=== PATIENT | male | born 1960 | race Caucasian/White ===

== ENCOUNTER 2022-02-07 09:20 | Day surgery (SDC) | payer BC ==
[2022-02-03 12:10] VITALS: BMI 29.2
[~2022-02-07 09:20] MED LIST: LACTATED RINGERS 1,000 ML IV SCH
[2022-02-07 10:13] VITALS: RESP 16; TEMP 98.2
[2022-02-07] MEDS ORDERED: PROPOFOL 10 MG/ML 20 ML VIAL IV ONE (10:49)
--- NOTE | 2022-02-07 11:09 | P.PCN ---
Date of Procedure: 02/07/22 Procedure(s) Performed: BRIEF HISTORY: Patient is a 61-year-old pleasant white male scheduled for an elective colonoscopy as a part of screening for colon rectal neoplasia. PROCEDURE PERFORMED: Colonoscopy with snare polypectomy. PREOPERATIVE DIAGNOSIS: Screening for colon cancer. IV sedation per Anesthesia. PROCEDURE: After informed consent was obtained, the patient, was brought into the endoscopy unit. IV sedation was administered by Anesthesia under continuous monitoring. Digital rectal examination was normal. Initially the Olympus CF-160 flexible video colonoscope was then inserted in the rectum, gradually advanced into the cecum without any difficulty. Careful examination was performed as the scope was gradually being withdrawn. Ileocecal valve and the appendiceal orifice were visualized and appeared normal. Prep was excellent. Mucosa of the cecum, had a 7 mm sessile polyp removed by snare polypectomy. Rest of the ascending colon, transverse colon, descending colon, sigmoid colon, and rectum appeared normal. Retroflexion was performed in the rectum and no lesions were seen. The patient tolerated the procedure well. IMPRESSION: 7 mm cecal polyp status post polypectomy rest of the colon appeared normal RECOMMENDATIONS: Findings of this examination were discussed with the patient as well as his family. He was advised to follow with the biopsy results. If the biopsy shows adenoma he can have a repeat colonoscopy in 5 years.
[2022-02-07 11:30] VITALS: BP 135/95; PULSE 83
== END 2022-02-07 11:40 | disposition home or self-care (01) ==
LOC: ORWHC2ENDO 09:20
PROVIDERS: ATTEND Internal Medicine Gastroenterology
DX: Z12.11 Encounter for screening for malignant neoplasm of colon (principal); D12.0 Benign neoplasm of cecum; E78.5 Hyperlipidemia, unspecified; R19.7 Diarrhea, unspecified; Z79.899 Other long term (current) drug therapy; Z88.0 Allergy status to penicillin; Z97.2 Presence of dental prosthetic device (complete) (partial)
CPT/HCPCS: 88305; 45385; J2704

== ENCOUNTER 2024-12-17 13:14 | Emergency (ER) | payer MEDICARE, BC ==
--- NOTE | 2024-12-17 14:09 | ED ---
Upper Extremity HPI - General Chief Complaint: Extremity Injury, Upper Stated Complaint: L hand injury Time Seen by Provider: 12/17/24 14:05 Source: patient, RN notes reviewed Mode of arrival: ambulatory Limitations: no limitations - History of Present Illness Initial Comments: 64-year-old male presenting for left hand injury 2 days ago. States he was working outside when a chain came down and hit him on the left hand. States he is having large amount of swelling in his thumb and limited range of motion of the thumb. Pain radiates into the wrist. No other injuries. No cuts or lacerations. - Related Data Home Medications Medication Instructions Recorded Confirmed Lipitor - Unknown Dose 1 tab PO DAILY 02/06/22 02/07/22 Vitamin B-12 Unknown Dose 1 dose PO DAILY 02/06/22 02/07/22 Folic Acid 1 mg PO DAILY 02/07/22 02/07/22 Allergies Allergy/AdvReac Type Severity Reaction Status Date / Time Penicillins Allergy Unknown THROAT Verified 12/17/24 13:19 SWELLING Review of Systems ROS Statement: Those systems with pertinent positive or pertinent negative responses have been documented in the HPI. ROS Other: All systems not noted in ROS Statement are negative. Past Medical History Past Medical History: Hyperlipidemia Additional Past Medical History / Comment(s): Diarrhea History of Any Multi-Drug Resistant Organisms: None Reported Past Surgical History: Orthopedic Surgery Additional Past Surgical History / Comment(s): R Rotator cuff surgery. Past Anesthesia/Blood Transfusion Reactions: No Reported Reaction Past Psychological History: No Psychological Hx Reported Smoking Status: Former smoker Past Alcohol Use History: Heavy Past Drug Use History: None Reported - Past Family History Mother Family Medical History: No Reported History General Exam Limitations: no limitations General appearance: alert, in no apparent distress Head exam: Present: atraumatic, normocephalic, normal inspection Eye exam: Present: normal appearance, PERRL, EOMI. Absent: scleral icterus, conjunctival injection, periorbital swelling Left Elbow exam: Present: normal inspection, full ROM. Absent: tenderness, swelling Forearm Wrist exam: Present: normal inspection, full ROM. Absent: tenderness, swelling, tenderness over anatomical snuff box Hand Wrist exam: Present: tenderness, swelling, erythema. Absent: normal inspection, full ROM (Limited range of motion of DIP joint of the left thumb with diffuse swelling), abrasion, laceration, deformity Vascular: Present: normal capillary refill, radial pulse. Absent: vascular compromise Neurological exam: Present: alert, oriented X3 Psychiatric exam: Present: normal affect, normal mood Skin exam: Present: warm, dry, intact, normal color. Absent: rash Course Vital Signs 12/17/24 13:16 Temperature 97.9 F Pulse Rate 112 H Respiratory 18 Rate Blood Pressure 164/70 O2 Sat by Pulse 98 Oximetry Procedures - Orthopedic Splinting/Casting Injury #1 Side: left Upper Extremity Injury Location: hand Upper Extremity Immobilizer: thumb spica Additional Comments: Neurovascularly intact status post splint Medical Decision Making - Medical Decision Making Was pt. sent in by a medical professional or institution (, PA, [employer], urgent care, hospital, or custodial...) When possible be specific @ -No Did you speak to anyone other than the patient for history (EMS, parent, family, police, friend...)? What history was obtained from this source @ -No Did you review nursing and triage notes (agree or disagree)? Why? @ -I reviewed and agree with nursing and triage notes Were old charts reviewed (outside hosp., previous admission, EMS record, old EKG, old radiological studies, urgent care reports/EKG's, custodial records)? Report findings @ -No old charts were reviewed Differential Diagnosis (chest pain, altered mental status, abdominal pain women, abdominal pain men, vaginal bleeding, weakness, fever, dyspnea, syncope, headache, dizziness, GI bleed, back pain, seizure, CVA, palpatations, mental health, musculoskeletal)? @ -Differential Musculoskeletal Muscular strain, contusion, ligament sprain, fracture, arthritis, septic arthritis, bursitis, cellulitis, muscle spasm, nerve compression, DVT, arterial occlusion, herpes zoster, electrolyte abnormality, tumor.... This is not meant to be in all inclusive list EKG interpreted by me (3pts min.). @ -None X-rays interpreted by me (1pt min.). @ -X-ray left hand reveals comminuted fracture through first digit proximal phalanx with intra-articular extension to interphalangeal joint and metacarpoph alangeal joint CT interpreted by me (1pt min.). @ -None done U/S interpreted by me (1pt. min.). @ -None done What testing was considered but not performed or refused? (CT, X-rays, U/S, labs)? Why? @ -None What meds were considered but not given or refused? Why? @ -None Did you discuss the management of the patient with other professionals (professionals i.e. , PA, [employer], lab, RT, psych nurse, social worker masters, features editor, teacher, environmental officer, adult protective caseworker)? Give summary @ -No Was smoking cessation discussed for >3mins.? @ -No Was critical care preformed (if so, how long)? @ -No Were there social determinants of health that impacted care today? How? (Homelessness, low income, unemployed, alcoholism, drug addiction, transportation, low edu. Level, literacy, decrease access to med. care, long term, r ehab)? @ -No Was there de-escalation of care discussed even if they declined (Discuss DNR or withdrawal of care, Hospice)? DNR status @ -No What co-morbidities impacted this encounter? (DM, HTN, Smoking, COPD, CAD, Cancer, CVA, ARF, Chemo, Hep., AIDS, mental health diagnosis, sleep apnea, morbid obesity)? @ -None Was patient admitted / discharged? Hospital course, mention meds given and route, prescriptions, significant lab abnormalities, going to OR and other pertinent info. @ -Discharge. 64-year-old male with left hand injury 2 days ago. There is diffuse first digit swelling with limited range of motion. Neurovascular intact. X-ray reveals comminuted fracture through first digit proximal phalanx with intra-articular extension into interphalangeal joint and metacarpophalangeal joints. Discussed results with patient. Thumb spica splint placed and advised to follow-up with orthopedics in 1 to 2 days. Appropriate return precautions and supportive care discussed. Case was discussed with the ED attending Dr. Wiggins. Undiagnosed new problem with uncertain prognosis? @ -No Drug Therapy requiring intensive monitoring for toxicity (Heparin, Nitro, Insulin, Cardizem)? @ -No Were any procedures done? @ -Orthopedic splint performed Diagnosis/symptom? @ -Left thumb fracture Acute, or Chronic, or Acute on Chronic? @ -Acute Uncomplicated (without systemic symptoms) or Complicated (systemic symptoms)? @ -Uncomplicated Side effects of treatment? @ -No Exacerbation, Progression, or Severe Exacerbation? @ -No Poses a threat to life or bodily function? How? (Chest pain, [place], [place], pneumonia, PE, COPD, DKA, ARF, appy, cholecystitis, CVA, Diverticulitis, Homicidal, Suicidal, threat to staff... and all critical care pts) @ -No Disposition Clinical Impression: Fracture of thumb, left, closed Disposition: HOME SELF-CARE Condition: Stable Instructions (If sedation given, give patient instructions): Thumb Fracture (ED) Additional Instructions: [facility] as discussed. Dr. York is the hand specialist for the group. Keep splint dry. Wear until orthopedic follow-up. Please return to the Emergency Department if symptoms worsen or any other concerns. Is patient prescribed a controlled substance at d/c from ED?: No Referrals: None,Stated [Primary Care Provider] - 1-2 days Reinaldo Sheridan DO [Doctor of Osteopathic Medicine] - 1-2 days Time of Disposition: 15:26
--- NOTE | 2024-12-17 14:35 | XR ---
EXAMINATION TYPE: XR hand complete LT DATE OF EXAM: 12/17/2024 2:19 PM COMPARISON: Noner CLINICAL INDICATION: Male, 64 years old with history of left hand injury; PHH, pain TECHNIQUE: XR hand complete LT 4 views were obtained. FINDINGS: Comminuted fracture with extension into the articular surfaces of the carpal metacarpophala ngeal joint and the interphalangeal joint of the first digit. Degeneration changes with joint space t earing mass effect relation of the second and third digit metacarpal phalangeal joints. IMPRESSION: 1. Comminuted fracture through the first digit proximal phalanx with intra-articular extension to th e interphalangeal joint and metacarpophalangeal joint. 2. Multifocal osteoarthrosis throughout the joints of the hand worse at the second and third digits and metacarpal phalangeal joint. [facility], , 12/17/2024 2:32 PM
[2024-12-17 15:42] VITALS: BP 157/78; PULSE 78; RESP 20; TEMP 98.1
== END 2024-12-17 15:51 | disposition home or self-care (01) ==
LOC: EC 13:14
DX: S62.512A Displaced fracture of proximal phalanx of left thumb, initial encounter for closed fracture (principal); Z87.891 Personal history of nicotine dependence; W22.09XA Striking against other stationary object, initial encounter
CPT/HCPCS: 29125; 99283

== ENCOUNTER 2024-12-26 20:50 | Emergency (ER) | payer BC, MEDICARE ==
[2024-12-26 20:57] VITALS: BP 114/64; PULSE 90; RESP 18; TEMP 97.9
--- NOTE | 2024-12-26 21:39 | ED ---
General Adult HPI - General Chief complaint: Wound/Laceration Stated complaint: posb broken nose Time Seen by Provider: 12/26/24 20:59 Source: patient Mode of arrival: ambulatory Limitations: no limitations - History of Present Illness Initial comments: 64-year-old male presenting with chief complaint of facial laceration. Patient has had a "a few beers" tonight. He states that he tripped and fell hitting his face on the ground. He has a laceration over the bridge of his nose, about 2- 1/2 cm long. His tetanus is up-to-date. He denies any loss of consciousness or blood thinners. No nausea or vomiting. No headache dizziness or vision changes. No confusion. No numbness or tingling. He is able to walk without difficulty. No extremity pain. No chest pain or difficulty breathing. - Related Data Home Medications Medication Instructions Recorded Confirmed Lipitor - Unknown Dose 1 tab PO DAILY 02/06/22 02/07/22 Vitamin B-12 Unknown Dose 1 dose PO DAILY 02/06/22 02/07/22 Folic Acid 1 mg PO DAILY 02/07/22 02/07/22 Previous Rx's Medication Instructions Recorded Cephalexin [Keflex] 500 mg PO Q6HR 7 Days #28 cap 12/26/24 Allergies Allergy/AdvReac Type Severity Reaction Status Date / Time Penicillins Allergy Unknown THROAT Verified 12/26/24 20:57 SWELLING Review of Systems ROS Statement: Those systems with pertinent positive or pertinent negative responses have been documented in the HPI. ROS Other: All systems not noted in ROS Statement are negative. Past Medical History Past Medical History: Hyperlipidemia Additional Past Medical History / Comment(s): Diarrhea History of Any Multi-Drug Resistant Organisms: None Reported Past Surgical History: Orthopedic Surgery Additional Past Surgical History / Comment(s): R Rotator cuff surgery. Past Anesthesia/Blood Transfusion Reactions: No Reported Reaction Past Psychological History: No Psychological Hx Reported Smoking Status: Former smoker Past Alcohol Use History: Heavy Past Drug Use History: None Reported - Past Family History Mother Family Medical History: No Reported History General Exam Limitations: no limitations General appearance: alert, in no apparent distress Expanded Head exam: Present: laceration (Laceration to the bridge of the nose) Eye exam: Present: normal appearance, EOMI Neck exam: Present: normal inspection. Absent: meningismus Respiratory exam: Absent: respiratory distress Cardiovascular Exam: Present: regular rate Neurological exam: Present: alert, oriented X3 Psychiatric exam: Present: normal affect, normal mood Course Vital Signs 12/26/24 20:54 Temperature 97.9 F Pulse Rate 90 Respiratory 18 Rate Blood Pressure 114/64 O2 Sat by Pulse 96 Oximetry Procedures - Laceration Laceration #1 Consent Obtained: verbal consent Indication: laceration Site: face Size (cm): 2 Description: linear Depth: simple, single layer Anesthetic Used: lidocaine 1%, without epi Anesthesia Technique: local infiltration Pre-repair: wound explored, irrigated extensively Size of Sutures: 5-0 Number of Sutures: 3 Technique: simple, interrupted Patient Tolerated Procedure: well Medical Decision Making - Medical Decision Making Was pt. sent in by a medical professional or institution (, PA, ROAD CUTTER, urgent care, hospital, or detention...) When possible be specific @ -No Did you speak to anyone other than the patient for history (EMS, parent, family, police, friend...)? What history was obtained from this source @ -No Did you review nursing and triage notes (agree or disagree)? Why? @ -I reviewed and agree with nursing and triage notes Were old charts reviewed (outside hosp., previous admission, EMS record, old EKG, old radiological studies, urgent care reports/EKG's, detention records)? Report findings @ -No old charts were reviewed Differential Diagnosis (chest pain, altered mental status, abdominal pain women, abdominal pain men, vaginal bleeding, weakness, fever, dyspnea, syncope, headache, dizziness, GI bleed, back pain, seizure, CVA, palpatations, mental health, musculoskeletal)? @ -Differential includes uncomplicated head injury, laceration, fracture, hemorrhage, concussion, not an all-inclusive list EKG interpreted by me (3pts min.). @ -As above X-rays interpreted by me (1pt min.). @ -I will CT interpreted by me (1pt min.). @ -CT shows no acute intracranial process. No evidence of cervical spine fracture. Moderate to severe multilevel degenerative disc disease. Nasal bone fracture to the tip with slight indented deformity U/S interpreted by me (1pt. min.). @ -None done What testing was considered but not performed or refused? (CT, X-rays, U/S, labs)? Why? @ -None What meds were considered but not given or refused? Why? @ -None Did you discuss the management of the patient with other professionals (professionals i.e. , PA, ROAD CUTTER, lab, RT, psych nurse, social sciences chair, clinical physician assistant, teacher, surface to air weapons officer, watch case polisher)? Give summary @ -No Was smoking cessation discussed for >3mins.? @ -No Was critical care preformed (if so, how long)? @ -No Were there social determinants of health that impacted care today? How? (Homelessness, low income, unemployed, alcoholism, drug addiction, transportation, low edu. Level, literacy, decrease access to med. care, nursing home, rehab)? @ -No Was there de-escalation of care discussed even if they declined (Discuss DNR or withdrawal of care, Hospice)? DNR status @ -No What co-morbidities impacted this encounter? (DM, HTN, Smoking, COPD, CAD, Cancer, CVA, ARF, Chemo, Hep., AIDS, mental health diagnosis, sleep apnea, morbid obesity)? @ -None Was patient admitted / discharged? Hospital course, mention meds given and route, prescriptions, significant lab abnormalities, going to OR and other pertinent info. @ -64-year-old male presenting with chief complaint of head injury. Patient was drinking "a few beers" tonight and tripped and fell. He has a 2-1/2 cm laceration to the bridge of his nose. No loss of consciousness or blood thinners. CT shows no acute intracranial process or cervical spine fracture. There is a nasal bone fracture. Laceration is repaired, see procedure note for details. Patient is started on Keflex. Educated on today's findings. Provided with ENT follow-up. Follow-up with PCP. Report back to ER with any new or worsening symptoms. Discussed return parameters and answered all questions. Patient conveyed verbal understanding and agreed to the plan. I discussed this case in detail with my attending Dr. Gabriel Undiagnosed new problem with uncertain prognosis? @ -No Drug Therapy requiring intensive monitoring for toxicity (Heparin, Nitro, Insulin, Cardizem)? @ -No Were any procedures done? @ -Laceration repair Diagnosis/symptom? @ -Head injury, facial laceration, nasal bone fracture Acute, or Chronic, or Acute on Chronic? @ -Acute Uncomplicated (without systemic symptoms) or Complicated (systemic symptoms)? @ -Uncomplicated Side effects of treatment? @ -No Exacerbation, Progression, or Severe Exacerbation? @ -No Poses a threat to life or bodily function? How? (Chest pain, [place], [place], pneumonia, PE, COPD, DKA, ARF, appy, cholecystitis, CVA, Diverticulitis, Homicidal, Suicidal, threat to staff... and all critical care pts) @ -Low likelihood Disposition Clinical Impression: Head injury, Facial laceration, Nasal bone fracture Disposition: HOME SELF-CARE Condition: Good Instructions (If sedation given, give patient instructions): Nasal Fracture (ED), Head Injury (ED), Facial Laceration (ED) Additional Instructions: Follow-up with PCP. Follow-up with ENT for nasal bone fracture. Report back to ER with any new or worsening symptoms. Keep the wound clean dry and covered. Wash regularly with soap and water. Avoid fully submerging the wound in water for prolonged periods of time. Monitor for signs of infection, including but not limited to redness, swelling, warmth, tenderness, discharge, fever. Sutures may be removed in 3 to 5 days Prescriptions: Cephalexin [Keflex] 500 mg PO Q6HR 7 Days #28 cap Is patient prescribed a controlled substance at d/c from ED?: No Referrals: Armaan Newton MD [Primary Care Provider] - 1-2 days Alexy Tavarez MD [STAFF PHYSICIAN] - 1-2 days Tramaine Jean-Baptiste MD [STAFF PHYSICIAN] - 1-2 days Time of Disposition: 22:23
[2024-12-26] MEDS: LIDOCAINE/EPINEPHR/TETRACAINE 5 ML BOTTLE TOPICAL ONE (22:00)
[2024-12-26] MEDS: LIDOCAINE 1% INJ 10MG/ML (20 ML MDV) SQ ONE (22:00)
--- NOTE | 2024-12-26 22:01 | CT ---
EXAMINATION TYPE: CT brain cspine wo con DATE OF EXAM: 12/26/2024 9:43 PM COMPARISON: None. CLINICAL INDICATION: Male, 64 years old with history of head injury; Paitent fell and lac to vernon sanabria in TECHNIQUE: Brain: Multiple axial CT images of the brain were obtained without IV contrast. Cspine: Axial CT images from the skull base to the inferior aspect of T2 we obtained without intraven ous contrast. Coronal and sagittal reformatted images were also reviewed. . CT DLP: 1669.8 mGycm, Automated exposure control for dose reduction was used. FINDINGS: Brain: Extra-axial spaces: No abnormal extra-axial fluid collections. Ventricular system: Within normal limits Cerebral parenchyma: No acute intraparenchymal hemorrhage or mass effect. The collado-white junction is well differentiated. Cerebellum: Unremarkable. Mass effect: No evidence of midline shift. Intracranial vasculature: unremarkable Soft tissues: Superimposed laceration over nasal bone fracture Calvarium/osseous structures: No depressed skull fracture. Nasal bone fracture. Paranasal sinuses and mastoid air cells: Clear. Visualized orbits: Orbital contents are intact. Cervical spine: Fracture: None. Osseous structures: Multilevel degenerative disc disease changes with endplate spurring and disc oste ophyte complex's. Vertebral alignment: Straightening of the cervical spine. Spinal canal/Neural Foramina: Disc osteophyte complexes at C3-C4 through C6-C7 with at least mild spi nal canal stenosis. Facet joint uncovertebral joint arthropathy scattered throughout the cervical spi ne with varying degrees of neural foraminal stenosis. Neck soft tissues: Prevertebral soft tissues are within normal limits. Other: The airway is patent. Mild paraseptal emphysema changes. Nuchal ligament desiccation is presen t. IMPRESSION: 1. No acute intracranial process. 2. No evidence of cervical spine fracture. 3. Moderate to severe multilevel degenerative disc disease. 4. Nasal bone fracture of the tipe with slight indented deformity [facility], , 12/26/2024 9:59 PM
== END 2024-12-26 22:32 | disposition home or self-care (01) ==
LOC: EC 20:50
DX: S02.2XXA Fracture of nasal bones, initial encounter for closed fracture (principal); S01.81XA Laceration without foreign body of other part of head, initial encounter; Z88.0 Allergy status to penicillin; Z87.891 Personal history of nicotine dependence; W01.198A Fall on same level from slipping, tripping and stumbling with subsequent striking against other object, initial encounter
CPT/HCPCS: 72125; 70450; 99283; 12011; J2003